=== PATIENT | female | born 1950 | race Caucasian/White ===

== ENCOUNTER 2017-01-15 09:08 | Outpatient (CLI) | payer MEDICARE, MEDICAID ==
[2017-01-15 09:40] LABS: Hemoglobin A1c 11.8 % (4.0-6.0)
[2017-01-15 09:44] LABS: ALT (SGPT) 15 U/L (0-55); AST (SGOT) 17 U/L (5-34); Alkaline Phosphatase 98 U/L (40-150); Anion Gap 14 mmol/L (10-20); BUN (Urea Nitrogen) 8 mg/dL (9.8-20.1); Bilirubin, Total 0.6 mg/dL (0.2-1.2); Calc. Creatinine Clearance 0 mL/min (70-130); Calcium 9.4 mg/dL (7.8-10.44); Carbon Dioxide 27 mmol/L (23-31); Chloride 99 mmol/L (98-107); Estimated GFR-MDRD 65; Globulin 3.1 g/dL (2.4-3.5); Glucose 382 mg/dL (80-115); Potassium 4.2 mmol/L (3.5-5.1); Protein, Total 7.1 g/dL (5.8-8.1); Sodium 136 mmol/L (136-145)
== END 2017-01-15 09:09 | disposition home or self-care (01) ==
LOC: MADLABBHPM 09:08
PROVIDERS: ATTEND Family Medicine
DX: E11.65 Type 2 diabetes mellitus with hyperglycemia (principal)
CPT/HCPCS: 36415; 80053; 83036; 84443

== ENCOUNTER 2017-01-19 12:36 | Outpatient (CLI) | payer MEDICARE, MEDICAID | END 2017-01-19 12:37 | disposition home or self-care (01) | LOC: MADLABBHPM 12:36 | PROVIDERS: ATTEND Family Medicine | DX: M54.5 Low back pain (principal) | CPT/HCPCS: 36415; 87077; 87086; 87186 ==

== ENCOUNTER 2017-03-01 13:24 | Outpatient (CLI) | payer MEDICARE, MEDICAID ==
[2017-03-01 13:50] LABS: Hemoglobin A1c 10.2 % (4.0-6.0)
[2017-03-01 14:00] LABS: ALT (SGPT) 24 U/L (0-55); AST (SGOT) 26 U/L (5-34); Alkaline Phosphatase 79 U/L (40-150); Anion Gap 13 mmol/L (10-20); BUN (Urea Nitrogen) 18 mg/dL (9.8-20.1); Bilirubin, Total 0.5 mg/dL (0.2-1.2); Calc. Creatinine Clearance 0 mL/min (70-130); Calcium 9.5 mg/dL (7.8-10.44); Carbon Dioxide 22 mmol/L (23-31); Chloride 106 mmol/L (98-107); Estimated GFR-MDRD 64; Globulin 3.2 g/dL (2.4-3.5); Glucose 309 mg/dL (80-115); Potassium 4.3 mmol/L (3.5-5.1); Protein, Total 7.2 g/dL (5.8-8.1); Sodium 137 mmol/L (136-145)
== END 2017-03-01 13:25 | disposition home or self-care (01) ==
LOC: MADLABBHPM 13:24
PROVIDERS: ATTEND Family Medicine
DX: E03.9 Hypothyroidism, unspecified (principal); R30.0 Dysuria
CPT/HCPCS: 36415; 80053; 83036; 84443; 87086

== ENCOUNTER 2017-03-09 20:26 | Emergency (ER) | payer MEDICARE, MEDICAID ==
[~2017-03-09 20:26] MED LIST: Sterile Water Irrigation 250 ML BOT ONE
[2017-03-09] MEDS ORDERED: HYDROcodone/Acetaminophen 10/325 mg Tablet ONE (20:45)
--- NOTE | 2017-03-09 21:31 | RAD ---
RADIOGRAPH LEFT ELBOW 4 VIEWS: DATE: 03/09/17 TIME: 8:38 p.m. HISTORY: 66-year-old female with acute traumatic left elbow pain due to fall. FINDINGS: The positioning is suboptimal and obliqued, especially for the lateral view. This makes it difficult to evaluate for joint capsule distention. There are hypertrophic degenerative changes at the articu lation between the coronoid process and humerus. No dislocation is identified. No definite acute fra cture is identified. IMPRESSION: 1. Suboptimal study due to suboptimal positioning. 2. No definite acute fracture identified. 3. Mild to moderate osteoarthrosis. POS: [facility]
--- NOTE | 2017-03-09 21:42 | RAD ---
RADIOGRAPH LEFT HUMERUS 2 VIEWS: 03/09/17 HISTORY: 66-year-old female with acute traumatic left arm pain after fall from bed. FINDINGS: No acute fracture of the humeral diaphysis is identified. Multiple tendon anchors are embedded withi n the left humeral head. There is joint space narrowing and moderate osteophytosis of the glenohumer al joint, and the AC joint. IMPRESSION: 1. No acute left humeral shaft fracture. 2. Severe osteoarthrosis of the left glenohumeral joint and left acromioclavicular joint. 3. Status post left rotator cuff repair. POS: [facility]
--- NOTE | 2017-03-09 21:43 | RAD ---
RADIOGRAPH LEFT FOREARM 2 VIEWS: 03/09/17 HISTORY: 66-year-old female with acute traumatic left forearm pain after fall. FINDINGS: No acute fracture of the radius or ulna is identified. IMPRESSION: Negative. POS: [facility]
== END 2017-03-09 22:22 | disposition home or self-care (01) ==
LOC: MADERS 20:26
DX: S50.12XA Contusion of left forearm, initial encounter (principal); I25.2 Old myocardial infarction; E11.9 Type 2 diabetes mellitus without complications; E03.9 Hypothyroidism, unspecified; K74.60 Unspecified cirrhosis of liver; F31.9 Bipolar disorder, unspecified; Z86.73 Personal history of transient ischemic attack (TIA), and cerebral infarction without residual deficits; Z79.4 Long term (current) use of insulin; Z79.899 Other long term (current) drug therapy; W17.89XA Other fall from one level to another, initial encounter

== ENCOUNTER 2019-01-09 09:53 | Emergency (ER) | payer MEDICARE, MEDICAID ==
--- NOTE | 2019-01-09 12:43 | RAD ---
LEFT KNEE 4 VIEWS: HISTORY: Trauma. Fall. COMPARISON: Radiograph from 2017. FINDINGS: Moderate vascular calcifications. Large joint effusion. No displaced fracture or malalignment is appreciated. Small osteophyte body in the posterior recess. IMPRESSION: Large joint effusion greater than expected for the amount of degenerative change. Internal derangeme nt or nondisplaced impaction fracture is possible. MRI may be beneficial in this patient. POS: [facility]
== END 2019-01-09 11:30 | disposition home or self-care (01) ==
LOC: MADERS 09:53
DX: M25.462 Effusion, left knee (principal); I25.2 Old myocardial infarction; E11.9 Type 2 diabetes mellitus without complications; E03.9 Hypothyroidism, unspecified; F31.9 Bipolar disorder, unspecified; F22 Delusional disorders; Z86.73 Personal history of transient ischemic attack (TIA), and cerebral infarction without residual deficits; Z79.899 Other long term (current) drug therapy; Z79.891 Long term (current) use of opiate analgesic; Z79.4 Long term (current) use of insulin

== ENCOUNTER 2019-07-26 09:40 | Outpatient (CLI) | payer MEDICARE, MEDICAID ==
--- NOTE | 2019-07-26 10:04 | CT ---
EXAM: CT brain without contrast HISTORY: Chronic headaches that have gotten progressively worse COMPARISON: 03/16/2018 TECHNIQUE: Multiple contiguous axial images were obtained and a CT of the brain without contrast. FINDINGS: There are scattered hypodensities in the subcortical and periventricular white matter consi stent with small vessel ischemic disease. There is no evidence of hydrocephalus, intracranial hemorrhage, or extra-axial fluid collection. The calvarium and overlying soft tissues are unremarkable. The visualized paranasal sinuses and masto id air cells are well aerated. IMPRESSION: No evidence of acute intracranial abnormality
[2019-07-26 10:16] LABS: ALT (SGPT) 22 U/L (8-55); AST (SGOT) 21 U/L (5-34); Alkaline Phosphatase 61 U/L (40-150); Anion Gap 14 mmol/L (10-20); BUN (Urea Nitrogen) 12 mg/dL (9.8-20.1); Bilirubin, Total 0.2 mg/dL (0.2-1.2); Calc. Creatinine Clearance 0 mL/min (70-130); Calcium 9.3 mg/dL (7.8-10.44); Carbon Dioxide 26 mmol/L (23-31); Cardiac Risk 3.4 (Less than 4.5); Chloride 103 mmol/L (98-107); Cholesterol 247 mg/dl (< 200 Desired); Estimated GFR-MDRD 69; Globulin 3.2 g/dL (2.4-3.5); Glucose 137 mg/dL (80-115); HDL Cholesterol 72 mg/dL (>60 Neg Risk); LDL Cholesterol, Calculated 124 mg/dL; Potassium 4.4 mmol/L (3.5-5.1); Protein, Total 7.2 g/dL (6.0-8.3); Sodium 139 mmol/L (136-145); Triglycerides 254 mg/dL (Less than 150)
== END 2019-07-26 09:41 | disposition home or self-care (01) ==
LOC: MADLABBHPM 09:40
PROVIDERS: ATTEND Family Medicine
DX: R51 Headache (principal); E03.9 Hypothyroidism, unspecified; E78.5 Hyperlipidemia, unspecified; E11.9 Type 2 diabetes mellitus without complications
CPT/HCPCS: 36415; 70450; 80053; 80061; 84443

== ENCOUNTER 2019-12-13 08:14 | Emergency (ER) | payer MEDICARE, MEDICAID ==
[2019-12-13 08:43] LABS: Bilirubin Negative (Negative); Blood, Urine Small (Negative); Glucose, Urine (Dipstick) >=1000 mg/dL (Negative); Leukocyte Small (Negative); Nitrite Negative (Negative); Protein, Urine (Dipstick) Trace mg/dL (Neg-Trace); Urobilinogen 0.2 mg/dL (Less than 2)
[2019-12-13 08:44] LABS: Clarity Hazy (Clear)
[2019-12-13 08:45] LABS: Bacteria/HPF 2+ HPF (None Seen); RBC/HPF 0-3 HPF (0-3); WBC/HPF Greater Than 50 HPF (0-3)
[2019-12-13] MEDS ORDERED: cefTRIAXone\\ROCEPHIN 1 GM VIAL ONE (08:54)
== END 2019-12-13 09:20 | disposition home or self-care (01) ==
LOC: MADERS 08:14
DX: N39.0 Urinary tract infection, site not specified (principal); I25.2 Old myocardial infarction; E11.9 Type 2 diabetes mellitus without complications; E03.9 Hypothyroidism, unspecified; F31.9 Bipolar disorder, unspecified; F22 Delusional disorders; Z79.899 Other long term (current) drug therapy; Z86.73 Personal history of transient ischemic attack (TIA), and cerebral infarction without residual deficits; Z79.4 Long term (current) use of insulin
CPT/HCPCS: 81003; 81015; 96372; 99283; J0696

== ENCOUNTER 2020-02-27 20:16 | Emergency (ER) | payer MEDICARE, MEDICAID ==
[2020-02-27 21:34] LABS: #Basophils 0.1 thou/uL (0.0-0.2); #Eosinphils 0.1 thou/uL (0.0-0.7); #Lymphocytes 2.8 thou/uL (1.20-3.40); #Monocytes 0.7 thou/uL (0.11-0.59); #Neutrophils 2.8 thou/uL (1.40-6.50); %Eosinophils 1.7 % (0.0-10.0); %Lymphocytes 42.8 % (21.0-51.0); %Monocytes 11.2 % (0.0-10.0); %Neutrophils 43.2 % (42.0-75.0); Hemoglobin 14.3 g/dL (12.0-16.0); Mean Corpuscular HGB CONC 33.6 g/dL (32.0-36.0); Mean Corpuscular Hemoglobin 31.4 pg (27.0-31.0); Mean Corpuscular Volume 93.5 fL (78.0-98.0); Mean Platelet Volume 6.2 fL (7.4-10.4); Platelet Count 178 thou/uL (130-400); RBC Distribution Width 11.9 % (11.5-14.5); Red Blood Cell (RBC) Count 4.56 mill/uL (4.20-5.40); White Blood Cell (WBC) Count 6.5 thou/uL (4.8-10.8)
[2020-02-27] MEDS ORDERED: Insulin Regular 300 UNITS/3 ML VIAL ONE (21:34)
[2020-02-27] MEDS ORDERED: Sodium Chloride 0.9% 1,000 ML ONE (21:34)
--- NOTE | 2020-02-27 21:50 | CT ---
CT BRAIN 02/27/20 PROVIDED CLINICAL HISTORY: Altered mental status. FINDINGS: Comparison 07/26/19. The ventricular system appears normal in size and morphology. There is no evidence for intracranial h emorrhage or mass effect. Chronic microvascular ischemic changes are again seen involving the cerebra l white matter. The extracranial soft tissues and osseous structures demonstrate an unremarkable CT a ppearance. IMPRESSION: No evidence for intracranial hemorrhage or mass effect. POS: [facility]
--- NOTE | 2020-02-27 21:54 | RAD ---
PORTABLE CHEST: 02/27/20 PROVIDED CLINICAL HISTORY: Altered mental status. FINDINGS: Comparison 04/15/18. Cardiac and mediastinal silhouette is within normal limits. Vascular calcifications are seen involvin g the aortic arch. No focal consolidation, pleural fluid or pneumothorax is seen. Calcified granulom a is seen. IMPRESSION: No evidence for an acute cardiopulmonary process. POS: [facility]
[2020-02-27 21:57] LABS: ALT (SGPT) 21 U/L (8-55); AST (SGOT) 20 U/L (5-34); Albumin 4.5 g/dL (3.4-4.8); Alkaline Phosphatase 67 U/L (40-110); Anion Gap 18 mmol/L (10-20); BUN (Urea Nitrogen) 13 mg/dL (9.8-20.1); Bilirubin, Total 0.6 mg/dL (0.2-1.2); CK (CPK) 102 U/L (29-168); Calc. Creatinine Clearance 0 mL/min (70-130); Calcium 10.1 mg/dL (7.8-10.44); Carbon Dioxide 24 mmol/L (23-31); Chloride 101 mmol/L (98-107); Estimated GFR-MDRD 64; Globulin 3.5 g/dL (2.4-3.5); Glucose 245 mg/dL (80-115); Potassium 3.9 mmol/L (3.5-5.1); Sodium 139 mmol/L (136-145)
[2020-02-27 23:00] LABS: Bilirubin Negative (Negative); Blood, Urine Small (Negative); Clarity Cloudy (Clear); Glucose, Urine (Dipstick) 100 mg/dL (Negative); Leukocyte Negative (Negative); Nitrite Positive (Negative); Protein, Urine (Dipstick) 100 mg/dL (Neg-Trace); Urobilinogen 0.2 mg/dL (Less than 2)
[2020-02-27 23:02] LABS: Bacteria/HPF 4+ HPF (None Seen); Mucous/LPF 1+ LPF (<2+); Squamous Epithelial None Seen HPF (0-3); WBC/HPF 0-3 HPF (0-3)
[2020-02-27] MEDS ORDERED: Cephalexin 500 MG CAP ONE (23:20)
== END 2020-02-27 23:30 | disposition home or self-care (01) ==
LOC: MADERS 20:16
DX: R41.82 Altered mental status, unspecified (principal); E11.65 Type 2 diabetes mellitus with hyperglycemia; N39.0 Urinary tract infection, site not specified; I25.2 Old myocardial infarction; E03.9 Hypothyroidism, unspecified; K74.60 Unspecified cirrhosis of liver; F31.9 Bipolar disorder, unspecified; Z86.73 Personal history of transient ischemic attack (TIA), and cerebral infarction without residual deficits
CPT/HCPCS: 36416; 51701; 70450; 71045; 80053; 81003; 81015; 82550; 83605; 83880; 84484; 85025; 93005; 94760; 96361; 96374; A4353; J1815; J7050

== ENCOUNTER 2020-04-22 11:27 | Outpatient (CLI) | payer MEDICARE, MEDICAID ==
--- NOTE | 2020-04-22 13:03 | RAD ---
LEFT SHOULDER 3 VIEWS: HISTORY: Shoulder pain for 1 month. No recent trauma. COMPARISON: 11/12/2016. FINDINGS: Severe progressive glenohumeral joint arthropathy changes are noted with marked joint space loss and sclerosis and eburnation and hypertrophic osteophytosis.. Poor internal anchors stabilize the greate r tuberosity. Evidence for prior acromioplasty. No evidence for acute fracture or dislocation. IMPRESSION: Severe progressive glenohumeral joint arthropathy. Postoperative changes. No acute fracture or disl ocation. POS: [facility]
== END 2020-04-22 11:28 | disposition home or self-care (01) ==
LOC: MADRAD 11:27
PROVIDERS: ATTEND Family Medicine
DX: M25.512 Pain in left shoulder (principal); G89.29 Other chronic pain; M19.012 Primary osteoarthritis, left shoulder; Z98.890 Other specified postprocedural states

== ENCOUNTER 2020-06-06 14:01 | Outpatient (CLI) | payer MEDICARE, MEDICAID ==
--- NOTE | 2020-06-06 14:36 | RAD ---
XR Chest Pa Lat STANDARD History: Preop evaluation Comparison: Radiograph February 27, 2020 Findings: Lungs are clear. No pneumothorax. No effusion. Severe erosive changes of the left humeral head tendon suture anchors. Bilateral distal clavicular os teolysis. Impression: No acute intrathoracic abnormality.
[2020-06-06 14:52] LABS: Bilirubin Negative (Negative); Blood, Urine Trace (Negative); Glucose, Urine (Dipstick) 500 mg/dL (Negative); Ketone, Urine Negative (Negative); Leukocyte Small (Negative); Nitrite Positive (Negative); Protein, Urine (Dipstick) Trace mg/dL (Neg-Trace); Specific Gravity, Urine 1.025 (1.005-1.030); Urobilinogen 0.2 mg/dL (Less than 2)
[2020-06-06 14:53] LABS: #Basophils 0.1 thou/uL (0.0-0.2); #Eosinphils 0.3 thou/uL (0.0-0.7); #Lymphocytes 2.4 thou/uL (1.20-3.40); #Monocytes 0.4 thou/uL (0.11-0.59); #Neutrophils 2.7 thou/uL (1.40-6.50); %Basophils 1.5 % (0.0-1.0); %Eosinophils 5.5 % (0.0-10.0); %Lymphocytes 40.5 % (21.0-51.0); %Monocytes 6.7 % (0.0-10.0); %Neutrophils 45.8 % (42.0-75.0); Hemoglobin 12.9 g/dL (12.0-16.0); Mean Corpuscular HGB CONC 32.3 g/dL (32.0-36.0); Mean Corpuscular Hemoglobin 29.7 pg (27.0-31.0); Mean Platelet Volume 6.8 fL (7.4-10.4); Platelet Count 155 thou/uL (130-400); RBC Distribution Width 12.2 % (11.5-14.5); Red Blood Cell (RBC) Count 4.35 mill/uL (4.20-5.40); White Blood Cell (WBC) Count 5.9 thou/uL (4.8-10.8)
[2020-06-06 14:56] LABS: ALT (SGPT) 19 U/L (8-55); AST (SGOT) 16 U/L (5-34); Albumin 3.9 g/dL (3.4-4.8); Alkaline Phosphatase 76 U/L (40-110); Anion Gap 14 mmol/L (10-20); BUN (Urea Nitrogen) 13 mg/dL (9.8-20.1); Bilirubin, Total 0.5 mg/dL (0.2-1.2); Calc. Creatinine Clearance 0 mL/min (70-130); Carbon Dioxide 25 mmol/L (23-31); Chloride 105 mmol/L (98-107); Clarity Cloudy (Clear); Estimated GFR-MDRD 65; Glucose 275 mg/dL (80-115); Potassium 4.5 mmol/L (3.5-5.1); Protein, Total 6.9 g/dL (6.0-8.3); Sodium 139 mmol/L (136-145)
[2020-06-06 14:59] LABS: Bacteria/HPF 2+ HPF (None Seen); Mucous/LPF 1+ LPF (<2+); RBC/HPF 0-3 HPF (0-3); WBC/HPF 21-50 HPF (0-3)
[2020-06-06 20:46] LABS: Hemoglobin A1c 10.5 % (4.0-6.0)
== END 2020-06-06 14:02 | disposition home or self-care (01) ==
LOC: MADRAD 14:01
PROVIDERS: ATTEND Family Medicine
DX: Z01.818 Encounter for other preprocedural examination (principal); E03.9 Hypothyroidism, unspecified; E78.5 Hyperlipidemia, unspecified; E11.9 Type 2 diabetes mellitus without complications
CPT/HCPCS: 36415; 71046; 80053; 81001; 83036; 84443; 85025

== ENCOUNTER 2021-04-23 17:43 | Emergency (ER) | payer MEDICARE, MEDICAID ==
[2021-04-23 18:46] LABS: ALT (SGPT) 30 U/L (8-55); AST (SGOT) 33 U/L (5-34); Albumin 3.6 g/dL (3.4-4.8); Alkaline Phosphatase 60 U/L (40-110); Anion Gap 14 mmol/L (10-20); BUN (Urea Nitrogen) 4 mg/dL (9.8-20.1); Bilirubin, Total 0.6 mg/dL (0.2-1.2); CK (CPK) 37 U/L (29-168); Calc. Creatinine Clearance 0 mL/min (70-130); Calcium 9.2 mg/dL (7.8-10.44); Carbon Dioxide 25 mmol/L (23-31); Chloride 105 mmol/L (98-107); Globulin 3.1 g/dL (2.4-3.5); Glucose 143 mg/dL (80-115); Potassium 3.9 mmol/L (3.5-5.1); Protein, Total 6.7 g/dL (5.8-8.1); Sodium 140 mmol/L (136-145)
[2021-04-23 18:54] LABS: Hemoglobin 12.9 g/dL (12.0-16.0); Mean Corpuscular HGB CONC 32.7 g/dL (32.0-36.0); Mean Corpuscular Hemoglobin 30.6 pg (27.0-31.0); Mean Corpuscular Volume 93.6 fL (78.0-98.0); Mean Platelet Volume 6.6 fL (7.4-10.4); Platelet Count 157 thou/uL (130-400); RBC Distribution Width 11.9 % (11.5-14.5); Red Blood Cell (RBC) Count 4.21 mill/uL (4.20-5.40); White Blood Cell (WBC) Count 4.4 thou/uL (4.8-10.8)
[2021-04-23 19:05] LABS: MDiff Complete? YES; Manual Diff?? YES
[2021-04-23 19:08] LABS: Lymphocytes 30 % (21-51); Monocytes 2 % (0-10); Neutrophil 36 % (42-75); Reactive Lymphocytes 25 % (0-10)
[2021-04-23 19:09] LABS: Eosinophils 7 % (0-10); Platelet Morphology Comment Appears Adequate; RBC Morphology Normal
[2021-04-23 20:32] LABS: Bilirubin Negative (Negative); Blood, Urine Trace (Negative); Clarity Clear (Clear); Glucose, Urine (Dipstick) Negative (Negative); Ketone, Urine Negative (Negative); Leukocyte Small (Negative); Nitrite Positive (Negative); Protein, Urine (Dipstick) Negative (Neg-Trace); Urobilinogen 0.2 mg/dL (Less than 2); pH, Urine 6.5 (5.0-9.0)
[2021-04-23 20:38] LABS: Bacteria/HPF 1+ HPF (None Seen); RBC/HPF 0-3 HPF (0-3); Squamous Epithelial None Seen HPF (0-3); WBC/HPF 0-3 HPF (0-3)
[2021-04-23] MEDS ORDERED: Sodium Chloride 0.9% 100 ML ONE (21:21)
[2021-04-23] MEDS ORDERED: cefTRIAXone\\ROCEPHIN 1 GM VIAL ONE (21:21)
== END 2021-04-23 21:27 | disposition short-term general hospital (02) ==
LOC: MADERS 17:43
DX: G45.9 Transient cerebral ischemic attack, unspecified (principal); G81.94 Hemiplegia, unspecified affecting left nondominant side; I25.2 Old myocardial infarction; E11.9 Type 2 diabetes mellitus without complications; E03.9 Hypothyroidism, unspecified; K74.60 Unspecified cirrhosis of liver; Z86.73 Personal history of transient ischemic attack (TIA), and cerebral infarction without residual deficits; Z86.69 Personal history of other diseases of the nervous system and sense organs
CPT/HCPCS: 36415; 51701; 70450; 71045; 80053; 81003; 81015; 82550; 83880; 84484; 85025; 87040; 87077; 87086; 87186; 93005; 96374; J0696; J3490

== ENCOUNTER 2021-05-19 20:30 | Emergency (ER) | payer MEDICARE, MEDICAID ==
[2021-05-19] MEDS ORDERED: Metoprolol Tartrate 5 MG/5 ML VIAL ONE (20:48)
[2021-05-19 20:51] LABS: #Basophils 0.1 thou/uL (0.0-0.2); #Eosinphils 0.3 thou/uL (0.0-0.7); #Lymphocytes 2.4 thou/uL (1.20-3.40); #Monocytes 0.4 thou/uL (0.11-0.59); #Neutrophils 2.6 thou/uL (1.40-6.50); %Basophils 1.6 % (0.0-1.0); %Eosinophils 4.3 % (0.0-10.0); %Lymphocytes 41.4 % (21.0-51.0); %Monocytes 7.6 % (0.0-10.0); %Neutrophils 45.1 % (42.0-75.0); Hemoglobin 13.9 g/dL (12.0-16.0); Mean Corpuscular HGB CONC 32.4 g/dL (32.0-36.0); Mean Corpuscular Hemoglobin 30.1 pg (27.0-31.0); Mean Corpuscular Volume 92.8 fL (78.0-98.0); Mean Platelet Volume 7.7 fL (7.4-10.4); Platelet Count 157 thou/uL (130-400); RBC Distribution Width 11.6 % (11.5-14.5); Red Blood Cell (RBC) Count 4.62 mill/uL (4.20-5.40); White Blood Cell (WBC) Count 5.9 thou/uL (4.8-10.8)
[2021-05-19 21:03] LABS: ALT (SGPT) 40 U/L (8-55); AST (SGOT) 41 U/L (5-34); Albumin 4.2 g/dL (3.4-4.8); Alkaline Phosphatase 89 U/L (40-110); Anion Gap 15 mmol/L (10-20); BUN (Urea Nitrogen) 12 mg/dL (9.8-20.1); Bilirubin, Total 0.3 mg/dL (0.2-1.2); Calc. Creatinine Clearance 0 mL/min (70-130); Calcium 9.9 mg/dL (7.8-10.44); Carbon Dioxide 23 mmol/L (23-31); Chloride 107 mmol/L (98-107); Globulin 3.4 g/dL (2.4-3.5); Glucose 175 mg/dL (80-115); Potassium 4.2 mmol/L (3.5-5.1); Protein, Total 7.6 g/dL (5.8-8.1); Sodium 141 mmol/L (136-145)
[2021-05-19] MEDS ORDERED: Aspirin 325 MG TAB ONE (21:25)
[2021-05-19] MEDS ORDERED: Nitroglycerin 2% Ointment 1 INCH/1 GM Packet ONE (21:25)
[2021-05-19] MEDS ORDERED: Ketorolac Tromethamine 30 MG/ML VIAL ONE (21:58)
[2021-05-20 00:17] LABS: Troponin I Less than 0.010 ng/mL (< 0.028)
[2021-05-20 07:30] LABS: Troponin I Less than 0.010 ng/mL (< 0.028)
== END 2021-05-20 11:50 | disposition short-term general hospital (02) ==
LOC: MADERS 20:30
DX: I48.91 Unspecified atrial fibrillation (principal); R07.9 Chest pain, unspecified; I10 Essential (primary) hypertension; I25.2 Old myocardial infarction; E11.9 Type 2 diabetes mellitus without complications; E03.9 Hypothyroidism, unspecified; K74.60 Unspecified cirrhosis of liver; Z86.73 Personal history of transient ischemic attack (TIA), and cerebral infarction without residual deficits; Z86.69 Personal history of other diseases of the nervous system and sense organs; Z79.82 Long term (current) use of aspirin; Z79.899 Other long term (current) drug therapy; Z79.84 Long term (current) use of oral hypoglycemic drugs; Z79.1 Long term (current) use of non-steroidal anti-inflammatories (NSAID)
CPT/HCPCS: 36415; 71045; 80053; 84484; 85025; 85379; 93005; 94760; 96374; 96375; J1885

== ENCOUNTER 2021-09-28 21:02 | Emergency (ER) | payer MEDICARE, MEDICAID ==
[2021-09-28 22:15] LABS: #Lymphocytes 1.1 thou/uL (1.20-3.40); #Monocytes 0.5 thou/uL (0.11-0.59); #Neutrophils 2.9 thou/uL (1.40-6.50); %Basophils 0.8 % (0.0-1.0); %Eosinophils 0.2 % (0.0-10.0); %Lymphocytes 23.7 % (21.0-51.0); %Monocytes 10.9 % (0.0-10.0); %Neutrophils 64.4 % (42.0-75.0); Hemoglobin 13.6 g/dL (12.0-16.0); Mean Corpuscular HGB CONC 33.4 g/dL (32.0-36.0); Mean Corpuscular Hemoglobin 29.4 pg (27.0-31.0); Mean Corpuscular Volume 88.3 fL (78.0-98.0); Mean Platelet Volume 6.7 fL (7.4-10.4); Platelet Count 180 thou/uL (130-400); RBC Distribution Width 11.2 % (11.5-14.5); Red Blood Cell (RBC) Count 4.62 mill/uL (4.20-5.40); White Blood Cell (WBC) Count 4.5 thou/uL (4.8-10.8)
[2021-09-28 22:34] LABS: ALT (SGPT) 17 U/L (8-55); AST (SGOT) 30 U/L (5-34); Albumin 3.6 g/dL (3.4-4.8); Alkaline Phosphatase 56 U/L (40-110); Anion Gap 16 mmol/L (10-20); BUN (Urea Nitrogen) 22 mg/dL (9.8-20.1); Bilirubin, Total 0.7 mg/dL (0.2-1.2); CK (CPK) 285 U/L (29-168); Calc. Creatinine Clearance 0 mL/min (70-130); Calcium 8.5 mg/dL (7.8-10.44); Carbon Dioxide 21 mmol/L (23-31); Chloride 98 mmol/L (98-107); Globulin 3.4 g/dL (2.4-3.5); Glucose 347 mg/dL (80-115); Potassium 3.4 mmol/L (3.5-5.1); Sodium 132 mmol/L (136-145)
[2021-09-28] MEDS ORDERED: predniSONE 20 MG TAB ONE (23:04)
[2021-09-28] MEDS ORDERED: Azithromycin 250 MG TAB ONE (23:04)
[2021-09-28] MEDS ORDERED: cefTRIAXone\\ROCEPHIN 1 GM VIAL ONE (23:05)
[2021-09-28] MEDS ORDERED: Lidocaine 1% 20 ML MDV ONE (23:05)
[2021-09-29 14:24] LABS: SARS-CoV-2 PCR by NAA DETECTED (NotDetected)
== END 2021-09-28 23:43 | disposition home or self-care (01) ==
LOC: MADERS 21:02
DX: U07.1 COVID-19 (principal); J20.9 Acute bronchitis, unspecified; J18.9 Pneumonia, unspecified organism; R19.7 Diarrhea, unspecified; I25.2 Old myocardial infarction; E11.9 Type 2 diabetes mellitus without complications; E03.9 Hypothyroidism, unspecified; Z86.73 Personal history of transient ischemic attack (TIA), and cerebral infarction without residual deficits; Z79.82 Long term (current) use of aspirin; Z79.84 Long term (current) use of oral hypoglycemic drugs; Z79.899 Other long term (current) drug therapy; Z86.69 Personal history of other diseases of the nervous system and sense organs
CPT/HCPCS: 71045; 80053; 82550; 83605; 85025; 96372; 99284; U0003; U0005; 36415; J0696; J7512

== ENCOUNTER 2021-11-05 09:52 | Outpatient (CLI) | payer MEDICARE, MEDICAID ==
[2021-11-05 10:43] LABS: ALT (SGPT) 18 U/L (8-55); AST (SGOT) 16 U/L (5-34); Albumin 4.2 g/dL (3.4-4.8); Alkaline Phosphatase 72 U/L (40-110); Anion Gap 11 mmol/L (10-20); BUN (Urea Nitrogen) 12 mg/dL (9.8-20.1); Bilirubin, Total 0.4 mg/dL (0.2-1.2); Calc. Creatinine Clearance 0 mL/min (70-130); Calcium 9.7 mg/dL (7.8-10.44); Carbon Dioxide 29 mmol/L (23-31); Cardiac Risk 3.4 (Less than 4.5); Chloride 102 mmol/L (98-107); Cholesterol 248 mg/dl (< 200 Desired); Globulin 3.4 g/dL (2.4-3.5); Glucose 303 mg/dL (80-115); HDL Cholesterol 72 mg/dL (>60 Neg Risk); LDL Cholesterol, Calculated 132 mg/dL; Potassium 4.4 mmol/L (3.5-5.1); Protein, Total 7.6 g/dL (5.8-8.1); Sodium 138 mmol/L (136-145); Triglycerides 221 mg/dL (Less than 150)
== END 2021-11-05 09:53 | disposition home or self-care (01) ==
LOC: MADLAB 09:52 → MADRAD 09:53
PROVIDERS: ATTEND Family Medicine
DX: J18.9 Pneumonia, unspecified organism (principal); E11.65 Type 2 diabetes mellitus with hyperglycemia; E78.2 Mixed hyperlipidemia; E03.9 Hypothyroidism, unspecified
CPT/HCPCS: 36415; 71046; 80053; 80061; 84443

== ENCOUNTER 2021-12-16 14:47 | Outpatient (CLI) | payer MEDICARE, MEDICAID | END 2021-12-16 14:48 | disposition home or self-care (01) | LOC: MADLAB 14:47 → MADCT 14:48 | PROVIDERS: ATTEND Family Medicine | DX: R51.9 Headache, unspecified (principal); R42 Dizziness and giddiness; R26.81 Unsteadiness on feet; J84.89 Other specified interstitial pulmonary diseases; J47.9 Bronchiectasis, uncomplicated; J98.4 Other disorders of lung; I65.29 Occlusion and stenosis of unspecified carotid artery; I67.2 Cerebral atherosclerosis | CPT/HCPCS: 70450; 71250 ==

== ENCOUNTER 2022-09-24 14:38 | Outpatient (CLI) | payer OTHER | END 2022-09-24 14:39 | disposition home or self-care (01) | LOC: MADRAD 14:38 | PROVIDERS: ATTEND Family Medicine | DX: M54.2 Cervicalgia (principal); W06.XXXA Fall from bed, initial encounter | CPT/HCPCS: 72050 ==

== ENCOUNTER 2022-12-31 09:01 | Outpatient (CLI) | payer OTHER | END 2022-12-31 09:02 | disposition home or self-care (01) | LOC: MADCT 09:01 | PROVIDERS: ATTEND Nurse Practitioner Family | DX: F07.81 Postconcussional syndrome (principal); I67.82 Cerebral ischemia | CPT/HCPCS: 70450 ==

== ENCOUNTER 2023-10-08 12:41 | Emergency (ER) | payer MEDICARE, MEDICAID ==
[2023-10-08 13:26] LABS: #Eosinphils 0.3 thou/uL (0.0-0.7); #Lymphocytes 1.5 thou/uL (1.20-3.40); #Monocytes 0.4 thou/uL (0.11-0.59); %Basophils 1.2 % (0.0-1.0); %Eosinophils 6.4 % (0.0-10.0); %Lymphocytes 35.7 % (21.0-51.0); %Monocytes 9.5 % (0.0-10.0); %Neutrophils 47.2 % (42.0-75.0); Hemoglobin 12.9 g/dL (12.0-16.0); Mean Corpuscular HGB CONC 32.2 g/dL (32.0-36.0); Mean Corpuscular Hemoglobin 31.5 pg (27.0-31.0); Mean Corpuscular Volume 97.6 fl (78.0-98.0); Mean Platelet Volume 6.4 fL (7.4-10.4); Platelet Count 158 10x3/uL (130-400); RBC Distribution Width 12.6 % (11.5-14.5); White Blood Cell (WBC) Count 4.2 10x3/uL (4.8-10.8)
[2023-10-08] MEDS ORDERED: Meclizine HCl 25 MG TAB ONE (13:38)
[2023-10-08 13:45] LABS: ALT (SGPT) 15 U/L (8-55); AST (SGOT) 19 U/L (5-34); Albumin 3.7 g/dL (3.4-4.8); Alkaline Phosphatase 54 U/L (40-110); Anion Gap 15 mmol/L (10-20); BUN (Urea Nitrogen) 13 mg/dL (9.8-20.1); Bilirubin, Total 0.5 mg/dL (0.2-1.2); Calc. Creatinine Clearance 0 mL/min (70-130); Calcium 9.6 mg/dL (7.8-10.44); Carbon Dioxide 25 mmol/L (23-31); Chloride 104 mmol/L (98-107); Estimated GFR 74; Glucose 186 mg/dL (83-110); Magnesium 1.5 mg/dL (1.6-2.6); Potassium 4.5 mmol/L (3.5-5.1); Protein, Total 6.7 g/dL (5.8-8.1); Sodium 139 mmol/L (136-145)
[2023-10-08 13:52] LABS: Troponin I Less than 0.010 ng/mL (< 0.028)
[2023-10-08 14:03] LABS: Bilirubin Negative (Negative); Blood, Urine Negative (Negative); Glucose, Urine (Dipstick) 500 mg/dL (Negative); Ketone, Urine Negative (Negative); Leukocyte Negative (Negative); Nitrite Negative (Negative); Protein, Urine (Dipstick) Negative (Neg-Trace); Urobilinogen 0.2 mg/dL (Less than 2); pH, Urine 5.5 (5.0-9.0)
[2023-10-08 14:04] LABS: Clarity Hazy (Clear)
[2023-10-08] MEDS ORDERED: Magnesium Oxide 400 MG TAB ONE (14:06)
[2023-10-08 14:15] LABS: Bacteria/HPF Rare-Few HPF (None Seen); CAUTI Indications for Culture Alt mental st,lethar; RBC/HPF None Seen HPF (0-3); Yeast-Budding 3+ HPF (None Seen)
[2023-10-08 14:18] LABS: Urine Culture Reflex Yes Yes
== END 2023-10-08 14:25 | disposition home or self-care (01) ==
LOC: MADERS 12:41
DX: S00.83XA Contusion of other part of head, initial encounter (principal); R42 Dizziness and giddiness; E83.42 Hypomagnesemia; E11.9 Type 2 diabetes mellitus without complications; E03.9 Hypothyroidism, unspecified; I48.91 Unspecified atrial fibrillation; J44.9 Chronic obstructive pulmonary disease, unspecified; I50.9 Heart failure, unspecified; Z79.82 Long term (current) use of aspirin; Z79.84 Long term (current) use of oral hypoglycemic drugs; Z79.899 Other long term (current) drug therapy; Z86.73 Personal history of transient ischemic attack (TIA), and cerebral infarction without residual deficits; Z79.01 Long term (current) use of anticoagulants
CPT/HCPCS: 70450; 70486; 71045; 72125; 80053; 81001; 83735; 84484; 85025; 87086; 93005

== ENCOUNTER 2024-01-01 11:48 | Emergency (ER) | payer MEDICAID, MEDICARE ==
[2024-01-01 12:39] LABS: ALT (SGPT) 15 U/L (8-55); AST (SGOT) 16 U/L (5-34); Albumin 4.2 g/dL (3.4-4.8); Alkaline Phosphatase 82 U/L (40-110); Anion Gap 17 mmol/L (10-20); BUN (Urea Nitrogen) 15 mg/dL (9.8-20.1); Bilirubin, Total 0.5 mg/dL (0.2-1.2); Calc. Creatinine Clearance 0 mL/min (70-130); Calcium 9.7 mg/dL (7.8-10.44); Carbon Dioxide 30 mmol/L (23-31); Chloride 101 mmol/L (98-107); Estimated GFR 62; Glucose 147 mg/dL (83-110); Potassium 5.1 mmol/L (3.5-5.1); Protein, Total 7.2 g/dL (5.8-8.1); Sodium 143 mmol/L (136-145)
[2024-01-01 12:40] LABS: #Basophils 0.1 thou/uL (0.0-0.2); #Eosinphils 0.3 thou/uL (0.0-0.7); #Lymphocytes 1.6 thou/uL (1.20-3.40); #Monocytes 0.3 thou/uL (0.11-0.59); #Neutrophils 1.8 thou/uL (1.40-6.50); %Basophils 1.5 % (0.0-1.0); %Eosinophils 7.4 % (0.0-10.0); %Lymphocytes 39.1 % (21.0-51.0); %Monocytes 6.3 % (0.0-10.0); %Neutrophils 45.8 % (42.0-75.0); Hematocrit 40.8 % (36.0-47.0); Hemoglobin 12.9 g/dL (12.0-16.0); Mean Corpuscular HGB CONC 31.7 g/dL (32.0-36.0); Mean Corpuscular Hemoglobin 31.7 pg (27.0-31.0); Mean Platelet Volume 7.6 fL (7.4-10.4); Platelet Count 99 10x3/uL (130-400); RBC Distribution Width 13.5 % (11.5-14.5); Red Blood Cell (RBC) Count 4.07 mill/uL (4.20-5.40)
[2024-01-01 12:41] LABS: Platelet Adequacy Comment Appears Decreased
== END 2024-01-01 13:30 | disposition home or self-care (01) ==
LOC: MADERS 11:48
DX: R42 Dizziness and giddiness (principal); T42.6X5A Adverse effect of other antiepileptic and sedative-hypnotic drugs, initial encounter; T42.8X5A Adverse effect of antiparkinsonism drugs and other central muscle-tone depressants, initial encounter; T45.0X5A Adverse effect of antiallergic and antiemetic drugs, initial encounter; T47.3X5A Adverse effect of saline and osmotic laxatives, initial encounter; E11.9 Type 2 diabetes mellitus without complications; J44.9 Chronic obstructive pulmonary disease, unspecified; Z79.84 Long term (current) use of oral hypoglycemic drugs
CPT/HCPCS: 36415; 70450; 80053; 82140; 85025; 93005

== ENCOUNTER 2024-09-13 12:33 | Emergency (ER) | payer MEDICARE, OTHER ==
[2024-09-13] MEDS ORDERED: Morphine 2 MG/ML VIAL ONE (12:55)
== END 2024-09-13 14:21 | disposition home or self-care (01) ==
LOC: MADERS 12:33
DX: S22.41XA Multiple fractures of ribs, right side, initial encounter for closed fracture (principal); I48.20 Chronic atrial fibrillation, unspecified; E11.9 Type 2 diabetes mellitus without complications; I50.9 Heart failure, unspecified; J44.9 Chronic obstructive pulmonary disease, unspecified; W18.30XA Fall on same level, unspecified, initial encounter; Y92.091 Bathroom in other non-institutional residence as the place of occurrence of the external cause
CPT/HCPCS: 70450; 71100; J2272; 96374

== ENCOUNTER 2024-09-15 11:50 | Emergency (ER) | payer OTHER | END 2024-09-15 12:43 | disposition home or self-care (01) | LOC: MADERS 11:50 | DX: S22.31XA Fracture of one rib, right side, initial encounter for closed fracture (principal); E11.9 Type 2 diabetes mellitus without complications; I50.9 Heart failure, unspecified; J44.9 Chronic obstructive pulmonary disease, unspecified; W19.XXXA Unspecified fall, initial encounter | CPT/HCPCS: 99283 ==

== ENCOUNTER 2024-09-21 12:01 | Emergency (ER) | payer OTHER ==
[2024-09-21] MEDS ORDERED: Morphine 2 MG/ML VIAL ONE (12:29)
== END 2024-09-21 12:49 | disposition home or self-care (01) ==
LOC: MADERS 12:01
DX: S22.41XA Multiple fractures of ribs, right side, initial encounter for closed fracture (principal); E03.9 Hypothyroidism, unspecified; I48.91 Unspecified atrial fibrillation; J44.9 Chronic obstructive pulmonary disease, unspecified; I25.2 Old myocardial infarction; E11.9 Type 2 diabetes mellitus without complications; B19.20 Unspecified viral hepatitis C without hepatic coma; K74.60 Unspecified cirrhosis of liver; Z86.73 Personal history of transient ischemic attack (TIA), and cerebral infarction without residual deficits; W19.XXXA Unspecified fall, initial encounter
CPT/HCPCS: 96372; 99283; J2272

== ENCOUNTER 2025-08-20 08:44 | Outpatient (CLI) | payer OTHER, MEDICAID ==
[2025-08-20 09:33] LABS: Cardiac Risk 3.7 (Less than 4.5); Cholesterol 182.0 mg/dl (< 200 Desired); HDL Cholesterol 49.0 mg/dL (>60 Neg Risk); LDL Cholesterol, Calculated 108.0 mg/dL; Triglycerides 125.0 mg/dL (Less than 150)
== END 2025-08-20 08:45 | disposition home or self-care (01) ==
LOC: MADLAB 08:44
PROVIDERS: ATTEND Internal Medicine Cardiovascular Disease
DX: E78.2 Mixed hyperlipidemia (principal)
CPT/HCPCS: 36415; 80061; 83036

== ENCOUNTER 2025-08-20 15:52 | Emergency (ER) | payer OTHER, MEDICAID ==
[2025-08-20] MEDS ORDERED: HYDROcodone/Acetaminophen 10/325 mg Tablet ONE (17:34)
== END 2025-08-20 17:35 | disposition home or self-care (01) ==
LOC: MADERS 15:52
DX: S20.211A Contusion of right front wall of thorax, initial encounter (principal); I48.91 Unspecified atrial fibrillation; I50.9 Heart failure, unspecified; J44.9 Chronic obstructive pulmonary disease, unspecified; I25.2 Old myocardial infarction; E11.9 Type 2 diabetes mellitus without complications; Z79.01 Long term (current) use of anticoagulants; Z79.84 Long term (current) use of oral hypoglycemic drugs; Z79.4 Long term (current) use of insulin; Z86.73 Personal history of transient ischemic attack (TIA), and cerebral infarction without residual deficits; W19.XXXA Unspecified fall, initial encounter; Y92.009 Unspecified place in unspecified non-institutional (private) residence as the place of occurrence of the external cause
CPT/HCPCS: 99283

== ENCOUNTER 2025-09-23 08:51 | Emergency (ER) | payer MEDICAID, OTHER ==
[2025-09-23] MEDS ORDERED: Acetaminophen 500 MG TAB ONE (09:47)
== END 2025-09-23 10:30 | disposition home or self-care (01) ==
LOC: MADERS 08:51
DX: S51.811A Laceration without foreign body of right forearm, initial encounter (principal); S01.21XA Laceration without foreign body of nose, initial encounter; S09.90XA Unspecified injury of head, initial encounter; I48.91 Unspecified atrial fibrillation; J44.9 Chronic obstructive pulmonary disease, unspecified; I25.2 Old myocardial infarction; E11.9 Type 2 diabetes mellitus without complications; W01.0XXA Fall on same level from slipping, tripping and stumbling without subsequent striking against object, initial encounter; Z86.73 Personal history of transient ischemic attack (TIA), and cerebral infarction without residual deficits
CPT/HCPCS: 70450; 72125

== ENCOUNTER 2025-10-14 23:48 | Emergency (ER) | payer OTHER ==
[2025-10-15 00:29] LABS: #Basophils 0.0 thou/uL (0.0-0.2); #Eosinophils 0.3 thou/uL (0.0-0.7); #Lymphocytes 1.6 thou/uL (1.20-3.40); #Monocytes 0.3 thou/uL (0.11-0.59); #Neutrophils 1.9 thou/uL (1.40-6.50); %Basophils 1.2 % (0.0-1.0); %Eosinophils 6.9 % (0.0-10.0); %Lymphocytes 38.1 % (21.0-51.0); %Monocytes 7.4 % (0.0-10.0); %Neutrophils 46.4 % (42.0-75.0); Hematocrit 34.6 % (36.0-47.0); Hemoglobin 11.3 g/dL (12.0-16.0); Mean Corpuscular Hemoglobin 31.3 pg (27.0-31.0); Mean Corpuscular Volume 95.6 fl (78.0-98.0); Platelet Count 124 10x3/uL (130-400); Red Blood Cell (RBC) Count 3.61 mill/uL (4.20-5.40); White Blood Cell (WBC) Count 4.2 10x3/uL (4.8-10.8)
[2025-10-15 00:45] LABS: ALT (SGPT) 47 U/L (Less than 34); AST (SGOT) 96 U/L (11-34); Albumin 3.1 g/dL (3.1-4.5); Alkaline Phosphatase 77 U/L (40-110); Anion Gap 14 mmol/L (10-20); BUN (Urea Nitrogen) 11 mg/dL (9.8-20.1); Bilirubin, Total 0.3 mg/dL (0.3-1.2); Calc. Creatinine Clearance 0 mL/min (70-130); Calcium 8.2 mg/dL (7.8-10.44); Carbon Dioxide 23 mmol/L (23-31); Chloride 111 mmol/L (98-107); Globulin 2.5 g/dL (2.4-3.5); Glucose 130 mg/dL (83-110); Magnesium 1.8 mg/dL (1.6-2.6); Potassium 4.8 mmol/L (3.5-5.1); Sodium 143 mmol/L (136-145)
[2025-10-15 00:46] LABS: Troponin I 0.010 ng/mL (< 0.028)
[2025-10-15 02:00] LABS: Bacteria/HPF 1+ HPF (None Seen); CAUTI Indications for Culture Pelvic or flank pain; Glucose, Urine (Dipstick) 500 mg/dL (Negative); Leukocyte Negative (Negative); Protein, Urine (Dipstick) Negative (Neg-Trace); RBC/HPF 0-3 HPF (0-3); Specific Gravity, Urine 1.020 (1.005-1.030)
[2025-10-15 02:01] LABS: Urine Culture Reflex Yes Yes
[2025-10-15] MEDS ORDERED: Naproxen 500 MG TAB ONE (02:22)
== END 2025-10-15 02:45 | disposition home or self-care (01) ==
LOC: MADERS 23:48
DX: S00.83XA Contusion of other part of head, initial encounter (principal); N39.0 Urinary tract infection, site not specified; I48.91 Unspecified atrial fibrillation; I11.0 Hypertensive heart disease with heart failure; I25.2 Old myocardial infarction; J44.9 Chronic obstructive pulmonary disease, unspecified; E11.9 Type 2 diabetes mellitus without complications; Z79.4 Long term (current) use of insulin; Z86.73 Personal history of transient ischemic attack (TIA), and cerebral infarction without residual deficits; Z79.01 Long term (current) use of anticoagulants; W19.XXXA Unspecified fall, initial encounter
CPT/HCPCS: 36415; 70450; 71045; 80053; 81001; 83735; 83880; 84484; 85025; 87077; 87086; 93005

== ENCOUNTER 2025-10-30 15:48 | Emergency (ER) | payer OTHER ==
[2025-10-30] MEDS ORDERED: Acetaminophen 325 MG TAB ONE (17:10)
== END 2025-10-30 17:14 | disposition home or self-care (01) ==
LOC: MADERS 15:48
DX: S00.03XA Contusion of scalp, initial encounter (principal); I50.9 Heart failure, unspecified; I25.10 Atherosclerotic heart disease of native coronary artery without angina pectoris; I48.91 Unspecified atrial fibrillation; I25.2 Old myocardial infarction; J44.9 Chronic obstructive pulmonary disease, unspecified; E11.9 Type 2 diabetes mellitus without complications; K74.60 Unspecified cirrhosis of liver; Z86.73 Personal history of transient ischemic attack (TIA), and cerebral infarction without residual deficits; W01.198A Fall on same level from slipping, tripping and stumbling with subsequent striking against other object, initial encounter
CPT/HCPCS: 70450